=== PATIENT | male | born 1950 | race Hispanic/Latino ===

== ENCOUNTER → 2019-07-28 | Outpatient (CLI) | payer MEDICARE | END | disposition home or self-care (01) | LOC: SHCH 11:05 | PROVIDERS: ATTEND Internal Medicine Cardiovascular Disease | DX: I73.9 Peripheral vascular disease, unspecified (principal) | CPT/HCPCS: 93922 ==

== ENCOUNTER 2019-08-27 06:53 | Day surgery (SDC) | payer MEDICARE ==
[2019-08-25 16:28] LABS: BASOPHILS % (AUTO) 0.6 % (0.0-5.0); EOSINOPHILS % (AUTO) 2.6 % (0.0-8.0); HEMATOCRIT 40.4 % (42-54); LYMPHOCYTES % (AUTO) 18.7 % (21.0-51.0); MEAN CORPUSCULAR HEMOGLOBIN 30.1 pg (27.0-33.0); MEAN CORPUSCULAR HGB CONC 32.9 g/dL (32.0-36.0); MEAN CORPUSCULAR VOLUME 91.4 fL (79-99); MONOCYTES % (AUTO) 7.7 % (3.0-13.0); NEUTROPHILS % (AUTO) 70.3 % (40.0-77.0); PLATELET COUNT (AUTO) 128 K/uL (130-400); RED BLOOD CELL COUNT(AUTO) 4.42 MIL/uL (4.50-6.20); RED CELL DISTRIBUTION WIDTH 12.3 % (11.0-15.5); WHITE BLOOD COUNT (AUTO) 8.2 K/uL (4.8-10.8)
[2019-08-25 16:39] VITALS: BP 173/77
[2019-08-25 16:43] LABS: INR 1.04 (0.85-1.15); PARTIAL THROMBOPLASTIN TIME 25.7 SEC (26.3-35.5); PROTHROMBIN TIME 10.9 SEC (9.6-11.6)
[2019-08-25 16:44] LABS: CREATININE 1.8 mg/dL (0.5-1.5); POTASSIUM 5.1 mmol/L (3.5-5.1)
[2019-08-25 16:47] LABS: APPEARANCE,URINE Clear (CLEAR); BILIRUBIN,URINE Negative (NEGATIVE); COLOR,URINE Yellow (YELLOW); GLUCOSE, URINE (UA) 500 mg/dL (NEGATIVE); KETONES,URINE Negative (NEGATIVE); LEUKOCYTE ESTERASE ,URINE Negative (NEGATIVE); NITRATE,URINE Negative (NEGATIVE); OCCULT BLOOD,URINE Negative (NEGATIVE); PROTEIN,URINE Negative (NEGATIVE); UROBILINOGEN,URINE 0.2 mg/dL (0.2-1.0)
[2019-08-25 16:55] LABS: BACTERIA,URINE None Seen /HPF (None Seen); RBC,URINE None Seen /HPF (0-1); SQUAMOUS EPITHELIAL CELL,UR None Seen /HPF (0-2); WBC,URINE 0-1 /HPF (0-1)
[2019-08-26 16:23] VITALS: BP 173/77
--- NOTE | 2019-08-26 18:43 | NUR ---
SPOKE TO AMINA JOYCE REGARDING ABNORMAL GLUCOSE, TO CHECK GLUCOSE IN AM AND LET DR. FELIPE KNOW RESULTS AND HE CAN DECIDE IF HE WILL DO PROCEDURE.
[~2019-08-27] VITALS: Ht 170.2 cm; Wt 85.7 kg
[2019-08-27] VITALS (11 sets, daily range): BP systolic 115–148; BP diastolic 58–74
[~2019-08-27 06:53] MED LIST: SODIUM CHLORIDE 0.9% 500ML 500 ML IV SCH
[2019-08-27] MEDS ORDERED: SODIUM CHLORIDE 0.9% 1000ML 1,000 ML IV ONE (07:11)
[2019-08-27] MEDS ORDERED: METO25TA6 PO (09:08)
[2019-08-27] MEDS ORDERED: ACET1TAB25 PO (09:08)
[2019-08-27] MEDS ORDERED: SPIR25TA6 PO (09:08)
[2019-08-27] MEDS ORDERED: FURO40TA5 PO (09:08)
[2019-08-27] MEDS ORDERED: GABA-529 PO (09:08)
[2019-08-27] MEDS ORDERED: CHOL200026 PO (09:08)
[2019-08-27] MEDS ORDERED: MUPI22OI2 TP (09:08)
[2019-08-27] MEDS ORDERED: GLIP10TA9 PO (09:08)
[2019-08-27] MEDS ORDERED: ASPI-555 PO (09:08)
[2019-08-27] MEDS ORDERED: ROSU20TA31 PO (09:08)
[2019-08-27] MEDS ORDERED: SACU1TAB7 PO (09:08)
[2019-08-27] MEDS ORDERED: FA/M1TAB31 PO (09:08)
[2019-08-27] MEDS ORDERED: ACET-2123 PO (09:08)
--- NOTE | 2019-08-27 09:09 | NUR ---
PROCEDURE PT HERE FOR PROCEDURE. WOUND TO RIGHT LOWER LEG THAT IS CURRENTLY BEING MANAGED BY [facility] AND WOUND CARE DR. DAUGHTER AT BEDSIDE
[2019-08-27] MEDS ORDERED: MIDAZOLAM HCL 1 MG/ML 2ML VIAL ONE (09:56)
[2019-08-27] MEDS ORDERED: SODIUM BICARB 50MEQ 50ML VIAL ONE (09:56)
[2019-08-27] MEDS ORDERED: HEPARIN SODIUM 1000UNIT/ML 10ML VIAL ONE (09:56)
[2019-08-27] MEDS ORDERED: IODIXANOL 320 MG/ML 100 ML VIAL ONE (09:56)
[2019-08-27] MEDS ORDERED: LIDOCAINE HCL 2% 20ML ONE (09:57)
[2019-08-27] MEDS ORDERED: FENTANYL CITRATE PF 50 MCG/1 ML 2ML VIAL ONE (09:57)
--- NOTE | 2019-08-27 11:45 | NUR ---
ASSESSMENT PT BACK FROM PROCEDURE VIA [facility] HAND STAFF ELLIOT CAREY. PT AAO X3. SITE TO LEFT GROIN SOFT TO TOUCH. NO BLEEDING, OOZING NOTED TO SITE. INSTRUCTED ON IMPORTANCE OF KEEPING LEFT LEG STILL AND NOT LIFTING HEAD UP OFF OF BED. PT VERBALIZED UNDERSTANDING.
--- NOTE | 2019-08-27 14:15 | NUR ---
REPORT REPORT GIVEN TO ELLIOT CHA. PTS SITE SOFT TO TIUCH. NO BLEEDING, OOZING NOTED TO SITE.
--- NOTE | 2019-08-27 16:05 | NUR ---
DISCHARGE PT DISCHARGED VIA WHEELCHAIR WITH DAUGHTER. PT STABLE. NO COMPLAINTS MADE. CATH SITE TO RIGHT GROIN REMAINS SOFT, NO OOZING NO HEMATOMA NOTED. DISCHARGE INSTRUCTIONS GIVEN TO DAUGHTER, VERBALIZED UNDERSTANDING.
== END 2019-08-27 16:05 | disposition home or self-care (01) ==
LOC: DAH 06:53
PROVIDERS: ATTEND Internal Medicine Cardiovascular Disease
DX: I70.211 Atherosclerosis of native arteries of extremities with intermittent claudication, right leg (principal); I13.0 Hypertensive heart and chronic kidney disease with heart failure and stage 1 through stage 4 chronic kidney disease, or unspecified chronic kidney disease; E11.22 Type 2 diabetes mellitus with diabetic chronic kidney disease; I50.9 Heart failure, unspecified; N18.9 Chronic kidney disease, unspecified; E78.5 Hyperlipidemia, unspecified; E11.42 Type 2 diabetes mellitus with diabetic polyneuropathy; G47.33 Obstructive sleep apnea (adult) (pediatric); Z79.899 Other long term (current) drug therapy; Z79.2 Long term (current) use of antibiotics; Z79.82 Long term (current) use of aspirin; Z79.84 Long term (current) use of oral hypoglycemic drugs; Z98.890 Other specified postprocedural states
CPT/HCPCS: 36246; 36415; 71045; 75710; 80048; 81001; 82948 ×2; 85025; 85610; 85730; 93005; A4215; A4216; A4221; A4222; A4223 ×2; A4663; C1760; C1769; C1894 ×2; J1644 ×2; J2250; J3010; J3490 ×2; J7030; Q9967; 99156; 99157